=== PATIENT | female | born 1940 | race Two or more races ===

== ENCOUNTER 2023-12-31 23:29 | Inpatient (IN) | payer MEDICARE, MEDICAID ==
[~2023-12-31] VITALS: Ht 129.5 cm; Wt 59.2 kg
[2024-01-01] VITALS (16 sets, daily range): BP systolic 112–154; BP diastolic 54–78; PULSE 74–110; RESP 12–23; TEMP 97.4–98.4; O2SAT 91–100
[2024-01-01] MEDS ORDERED: magnesium sulf-water 2g/50mL 50 ML IV PRN (00:55)
[2024-01-01] MEDS ORDERED: magnesium sulf-water 4G/100mL 100 ML IV PRN (00:55)
[2024-01-01] MEDS ORDERED: magnesium Cl slow-release 64mg tablet PO PRN (00:55)
[2024-01-01] MEDS: PERFLUTREN PROTEIN-A MICROSPHR (Optison) 0.22 MG/ML 3ML VIAL IV ONE (00:55)
[2024-01-01] MEDS ORDERED: magnesium hydroxide 30ml (MOM) UD suspension PO PRN (00:55)
[2024-01-01] MEDS ORDERED: potassium Cl 40MEQ/1/2NS 520ml 520 ML IV PRN (00:55)
[2024-01-01] MEDS ORDERED: mag hydrox/Alum hydrox/simeth 30ml oral suspension PO PRN (00:55)
[2024-01-01] MEDS: normal saline 1000ml 1,000 ML IV SCH (01:57)
[2024-01-01] MEDS ORDERED: normal saline 500ml IV soln 500 ML IV ONE ×2 (02:10)
[2024-01-01] MEDS: normal saline 1000ml 1,000 ML IVB ONE (02:56)
[2024-01-01] MEDS: azithromycin/NS 500mg/250ml 250 ML IV SCH (03:00)
[2024-01-01 03:10] LABS: BASOPHILS % (AUTO) 0.1 % (0-1); EOSINOPHILS % (AUTO) 0.1 % (0-6); HEMATOCRIT 32.5 % (35.0-45.0); HEMOGLOBIN 10.4 g/dl (12.0-16.0); LYMPHOCYTES # (AUTO) 1.5 X10'3 (1.1-4.8); MEAN CORPUSCULAR HEMOGLOBIN 27.8 PG (27.0-31.0); MEAN CORPUSCULAR HGB CONC 31.9 g/dL (33.0-36.5); MEAN CORPUSCULAR VOLUME 87.3 FL (78-98); MEAN PLATELET VOLUME 7.5 FL (7.4-10.4); MONOCYTES # (AUTO) 2.7 X10'3 (0-0.9); MONOCYTES % (AUTO) 17.6 % (2-12); NEUTROPHILS # (AUTO) 11.1 X10'3 (1.8-7.7); NEUTROPHILS % (AUTO) 72.2 % (42-75); PLATELET COUNT 167 X10'3 (140-440); RED BLOOD COUNT 3.73 X10'6 (4.20-5.60); RED CELL DISTRIBUTION WIDTH 15.7 % (11.5-14.5); WHITE BLOOD COUNT 15.4 X10'3 (4.5-11.0)
[2024-01-01 03:20] LABS: ALANINE AMINOTRANSFERASE 25 U/L (12-78); ALBUMIN 2.5 G/DL (3.4-5.0); ALBUMIN/GLOBULIN RATIO 0.6 (1.1-1.5); ALKALINE PHOSPHATASE 73 IU/L (46-116); ANION GAP 12 (8-16); ASPARTATE AMINO TRANSFERASE 28 U/L (10-37); BILIRUBIN,TOTAL 0.5 MG/DL (0.1-1.0); BLOOD UREA NITROGEN 17 MG/DL (7-18); CALCIUM 8.2 MG/DL (8.5-10.1); CHLORIDE 107 MMOL/L (99-107); CREATININE 1.13 MG/DL (0.40-0.90); GLUCOSE 110 MG/DL (70-104); POTASSIUM 3.9 MMOL/L (3.5-5.1); SODIUM 140 MMOL/L (135-145); TOTAL CARBON DIOXIDE 21.5 MMOL/L (24-32); TOTAL PROTEIN 6.6 G/DL (6.4-8.2); eCRCL 15 ML/MIN; eGFR 46 ML/MIN
[2024-01-01 03:21] LABS: CHOL/HDL RATIO 1.9 (0.00-4.99); CHOLESTEROL 111 MG/DL (0-200); HDL CHOLESTEROL 59 MG/DL (35-60); LDL CHOLESTEROL 43 MG/DL (50-100); MAGNESIUM 1.7 MG/DL (1.5-2.4); TRIGLYCERIDES 78 MG/DL (20-135)
[2024-01-01 04:04] LABS: PLATELET ESTIMATE NORMAL; TOTAL CELLS COUNTED 100
[2024-01-01] MEDS: ipratropium/albuterol 3ml nebule NEB PRN (05:39)
[2024-01-01 06:53] LABS: C DIFF ANTIGEN NEGATIVE (NEGATIVE); C DIFF SPECIMEN=DIARRHEA? ACCEPTABLE; C DIFFICILE TOXINS A&B NEGATIVE (Neg)
[2024-01-01] MEDS: K and/or MAG REPLACEMENT MC SCH (08:00)
[2024-01-01] MEDS: docusate sod 100mg capsule PO SCH (08:00)
[2024-01-01 08:03] LABS: PRO BRAIN NATRIURETIC PEPTIDE 1859 PG/ML (0-450)
[2024-01-01] MEDS: nitroGLYCERIN 0.4mg SUBLingual tab SL PRN (08:22)
[2024-01-01] MEDS: morphine 2 MG/ML inj. syringe IV PRN (08:29)
[2024-01-01] MEDS: ipratropium/albuterol 3ml nebule NEB SCH (08:30)
[2024-01-01] MEDS: CefTRIAXone 2gm/D5W 50ml BAG 50 ML IV SCH (08:36)
[2024-01-01] MEDS: pantoprazole 40 MG vial IV SCH (08:41)
[2024-01-01 14:37] LABS: BASOPHILS % (AUTO) 0.1 % (0-1); EOSINOPHILS % (AUTO) 0.1 % (0-6); HEMATOCRIT 30.4 % (35.0-45.0); HEMOGLOBIN 10.2 g/dl (12.0-16.0); LYMPHOCYTES # (AUTO) 0.9 X10'3 (1.1-4.8); LYMPHOCYTES % (AUTO) 8.7 % (21-51); MEAN CORPUSCULAR HEMOGLOBIN 28.5 PG (27.0-31.0); MEAN CORPUSCULAR HGB CONC 33.6 g/dL (33.0-36.5); MEAN CORPUSCULAR VOLUME 84.9 FL (78-98); MEAN PLATELET VOLUME 7.7 FL (7.4-10.4); MONOCYTES # (AUTO) 1.3 X10'3 (0-0.9); MONOCYTES % (AUTO) 12.7 % (2-12); NEUTROPHILS % (AUTO) 78.4 % (42-75); PLATELET COUNT 172 X10'3 (140-440); RED BLOOD COUNT 3.57 X10'6 (4.20-5.60); RED CELL DISTRIBUTION WIDTH 15.2 % (11.5-14.5); WHITE BLOOD COUNT 10.2 X10'3 (4.5-11.0)
[2024-01-01 14:44] LABS: ALANINE AMINOTRANSFERASE 30 U/L (12-78); ALBUMIN 2.4 G/DL (3.4-5.0); ALBUMIN/GLOBULIN RATIO 0.6 (1.1-1.5); ALKALINE PHOSPHATASE 66 IU/L (46-116); ANION GAP 10 (8-16); ASPARTATE AMINO TRANSFERASE 33 U/L (10-37); BILIRUBIN,TOTAL 0.3 MG/DL (0.1-1.0); BLOOD UREA NITROGEN 15 MG/DL (7-18); BUN/CREATININE RATIO 15.6 (10.0-20.0); CALCIUM 8.2 MG/DL (8.5-10.1); CHLORIDE 111 MMOL/L (99-107); CREATININE 0.96 MG/DL (0.40-0.90); GLUCOSE 103 MG/DL (70-104); POTASSIUM 3.9 MMOL/L (3.5-5.1); SODIUM 145 MMOL/L (135-145); TOTAL CARBON DIOXIDE 23.7 MMOL/L (24-32); TOTAL PROTEIN 6.2 G/DL (6.4-8.2); eCRCL 17 ML/MIN; eGFR 56 ML/MIN
[2024-01-01] MEDS ORDERED: CHOL20004 PO (15:52)
[2024-01-01] MEDS ORDERED: ATOR40TA PO (15:52)
[2024-01-01] MEDS ORDERED: ASPI-1265 PO (15:52)
[2024-01-01] MEDS ORDERED: NITR0.4T51 (15:52)
[2024-01-01] MEDS ORDERED: LISI2.5T14 PO (15:52)
[2024-01-01] MEDS ORDERED: RISP-31 PO (15:52)
[2024-01-01] MEDS ORDERED: BISA10SU60 RC (15:52)
[2024-01-01] MEDS ORDERED: METO25TA6 PO (15:52)
[2024-01-01] MEDS ORDERED: LORA10TA7 PO (15:52)
[2024-01-01] MEDS ORDERED: FURO40TA4 PO (15:52)
[2024-01-01] MEDS ORDERED: MELA10TA20 PO (15:52)
[2024-01-01] MEDS ORDERED: GABA-535 PO (15:52)
[2024-01-01] MEDS ORDERED: TIZA-189 PO (15:52)
[2024-01-01] MEDS ORDERED: POLY119P2 PO (15:52)
[2024-01-01] MEDS ORDERED: POTA-208 PO (15:52)
[2024-01-01] MEDS ORDERED: NYST15PO4 (15:52)
[2024-01-01] MEDS: lisinopril 2.5mg tablet PO SCH (16:50)
[2024-01-01] MEDS: aspirin 81mg tab.chew PO SCH (19:00)
[2024-01-01] MEDS: risperiDONE 0.5mg tablet PO SCH (21:18)
[2024-01-01] MEDS: atorvastatin 20mg tablet PO SCH (21:19)
[2024-01-01] MEDS: metoprolol tartrate 12.5mg (1/2 tablet) PO SCH (21:20)
[2024-01-01] MEDS: Melatonin 3mg tablet PO SCH (21:21)
[2024-01-01] MEDS: tizanidine 4mg tablet PO SCH (21:22)
[2024-01-01] MEDS: enoxaparin 30mg/0.3ml syringe SQ SCH (21:28)
[2024-01-02] VITALS (20 sets, daily range): BP systolic 92–150; BP diastolic 46–77; PULSE 79–101; RESP 12–26; TEMP 97.6–99.8; O2SAT 90–99
[2024-01-02] MEDS ORDERED: loratadine 10mg tablet PO SCH (08:00)
[2024-01-02] MEDS ORDERED: non-formulary drug (Polyethylene Glycol 3350 (Miralax) 17 GM) PO SCH (08:00)
[2024-01-02 09:47] LABS: HEMOGLOBIN 10.8 g/dl (12.0-16.0); RED CELL DISTRIBUTION WIDTH 15.2 % (11.5-14.5)
[2024-01-02 10:05] LABS: BASOPHILS % (AUTO) 0.2 % (0-1); EOSINOPHILS % (AUTO) 0.3 % (0-6); HEMATOCRIT 33.2 % (35.0-45.0); LYMPHOCYTES # (AUTO) 0.7 X10'3 (1.1-4.8); LYMPHOCYTES % (AUTO) 7.2 % (21-51); MEAN CORPUSCULAR HGB CONC 32.6 g/dL (33.0-36.5); MEAN CORPUSCULAR VOLUME 85.7 FL (78-98); MEAN PLATELET VOLUME 8.5 FL (7.4-10.4); MONOCYTES # (AUTO) 1.5 X10'3 (0-0.9); MONOCYTES % (AUTO) 15.2 % (2-12); NEUTROPHILS # (AUTO) 7.8 X10'3 (1.8-7.7); NEUTROPHILS % (AUTO) 77.1 % (42-75); PLATELET COUNT 196 X10'3 (140-440); RED BLOOD COUNT 3.87 X10'6 (4.20-5.60); WHITE BLOOD COUNT 10.1 X10'3 (4.5-11.0)
[2024-01-02] MEDS: cholecalciferol (vitamin D3) 1,000 unit (25mcg) tablet PO SCH (10:52)
[2024-01-02] MEDS: furosemide 40mg tablet PO SCH (10:55)
[2024-01-02 11:08] LABS: ALANINE AMINOTRANSFERASE 39 U/L (12-78); ALBUMIN 2.5 G/DL (3.4-5.0); ALBUMIN/GLOBULIN RATIO 0.6 (1.1-1.5); ALKALINE PHOSPHATASE 72 IU/L (46-116); ANION GAP 10 (8-16); ASPARTATE AMINO TRANSFERASE 40 U/L (10-37); BILIRUBIN,TOTAL 0.4 MG/DL (0.1-1.0); BLOOD UREA NITROGEN 15 MG/DL (7-18); BUN/CREATININE RATIO 17.6 (10.0-20.0); CALCIUM 8.7 MG/DL (8.5-10.1); CHLORIDE 111 MMOL/L (99-107); CREATININE 0.85 MG/DL (0.40-0.90); GLUCOSE 88 MG/DL (70-104); SODIUM 144 MMOL/L (135-145); TOTAL CARBON DIOXIDE 23.1 MMOL/L (24-32); TOTAL PROTEIN 6.4 G/DL (6.4-8.2); eCRCL 20 ML/MIN; eGFR 64 ML/MIN
[2024-01-02 11:15] LABS: POTASSIUM 3.9 MMOL/L (3.5-5.1)
[2024-01-02] MEDS: acetaminophen 325mg tablet PO PRN (18:09)
[2024-01-02] MEDS: methylPREDNISolone sod succ/PF 40mg inj. IV SCH (19:27)
[2024-01-03] VITALS (17 sets, daily range): BP systolic 130–163; BP diastolic 56–79; PULSE 78–116; RESP 14–26; TEMP 97–100.5; O2SAT 92–98
[2024-01-03] MEDS: pantoprazole 40mg Tablet.DR PO SCH (07:30)
[2024-01-03] MEDS: ondansetron/PF 4mg/2ml inj IV PRN (09:13)
[2024-01-03 10:11] LABS: ALANINE AMINOTRANSFERASE 34 U/L (12-78); ALBUMIN 2.7 G/DL (3.4-5.0); ALBUMIN/GLOBULIN RATIO 0.7 (1.1-1.5); ALKALINE PHOSPHATASE 73 IU/L (46-116); ANION GAP 13 (8-16); ASPARTATE AMINO TRANSFERASE 31 U/L (10-37); BILIRUBIN,TOTAL 0.4 MG/DL (0.1-1.0); BLOOD UREA NITROGEN 23 MG/DL (7-18); CHLORIDE 110 MMOL/L (99-107); CREATININE 0.92 MG/DL (0.40-0.90); GLUCOSE 140 MG/DL (70-104); MAGNESIUM 2.2 MG/DL (1.5-2.4); POTASSIUM 3.4 MMOL/L (3.5-5.1); SODIUM 145 MMOL/L (135-145); TOTAL CARBON DIOXIDE 22.4 MMOL/L (24-32); TOTAL PROTEIN 6.8 G/DL (6.4-8.2); eCRCL 18 ML/MIN; eGFR 58 ML/MIN
[2024-01-03 10:15] LABS: BASOPHILS % (AUTO) 0.1 % (0-1); EOSINOPHILS % (AUTO) 0 % (0-6); HEMATOCRIT 30.6 % (35.0-45.0); HEMOGLOBIN 10.2 g/dl (12.0-16.0); LYMPHOCYTES # (AUTO) 0.6 X10'3 (1.1-4.8); LYMPHOCYTES % (AUTO) 12.6 % (21-51); MEAN CORPUSCULAR HEMOGLOBIN 28.1 PG (27.0-31.0); MEAN CORPUSCULAR HGB CONC 33.2 g/dL (33.0-36.5); MEAN CORPUSCULAR VOLUME 84.8 FL (78-98); MEAN PLATELET VOLUME 7.9 FL (7.4-10.4); MONOCYTES # (AUTO) 0.2 X10'3 (0-0.9); NEUTROPHILS # (AUTO) 3.8 X10'3 (1.8-7.7); NEUTROPHILS % (AUTO) 83.3 % (42-75); PLATELET COUNT 209 X10'3 (140-440); RED BLOOD COUNT 3.61 X10'6 (4.20-5.60); RED CELL DISTRIBUTION WIDTH 15.3 % (11.5-14.5); WHITE BLOOD COUNT 4.6 X10'3 (4.5-11.0)
[2024-01-03] MEDS: azithromycin 250mg tablet PO SCH (10:56)
[2024-01-03] MEDS: potassium Cl 20 mEq SR tablet PO PRN ×2 (11:20→20:57)
[2024-01-03] MEDS: HYDROmorphone/PF 0.2 MG/ML SYRINGE IV ONE (19:30)
[2024-01-04] VITALS (14 sets, daily range): BP systolic 133–172; BP diastolic 51–82; PULSE 71–97; RESP 18–24; TEMP 97.3–98.8; O2SAT 93–95
[2024-01-04 03:02] LABS: BASOPHILS % (AUTO) 0.1 % (0-1); EOSINOPHILS % (AUTO) 0 % (0-6); HEMATOCRIT 28.5 % (35.0-45.0); HEMOGLOBIN 9.4 g/dl (12.0-16.0); LYMPHOCYTES # (AUTO) 0.7 X10'3 (1.1-4.8); MEAN CORPUSCULAR HEMOGLOBIN 28.2 PG (27.0-31.0); MEAN CORPUSCULAR HGB CONC 33.1 g/dL (33.0-36.5); MEAN PLATELET VOLUME 7.5 FL (7.4-10.4); MONOCYTES # (AUTO) 1.4 X10'3 (0-0.9); MONOCYTES % (AUTO) 21.2 % (2-12); NEUTROPHILS # (AUTO) 4.6 X10'3 (1.8-7.7); NEUTROPHILS % (AUTO) 68.7 % (42-75); PLATELET COUNT 218 X10'3 (140-440); RED BLOOD COUNT 3.35 X10'6 (4.20-5.60); RED CELL DISTRIBUTION WIDTH 14.9 % (11.5-14.5); WHITE BLOOD COUNT 6.7 X10'3 (4.5-11.0)
[2024-01-04 03:19] LABS: ALANINE AMINOTRANSFERASE 37 U/L (12-78); ALBUMIN 2.6 G/DL (3.4-5.0); ALBUMIN/GLOBULIN RATIO 0.7 (1.1-1.5); ALKALINE PHOSPHATASE 64 IU/L (46-116); ANION GAP 11 (8-16); ASPARTATE AMINO TRANSFERASE 26 U/L (10-37); BILIRUBIN,TOTAL 0.3 MG/DL (0.1-1.0); BLOOD UREA NITROGEN 30 MG/DL (7-18); BUN/CREATININE RATIO 27.8 (10.0-20.0); CALCIUM 8.6 MG/DL (8.5-10.1); CHLORIDE 112 MMOL/L (99-107); CREATININE 1.08 MG/DL (0.40-0.90); GLUCOSE 140 MG/DL (70-104); MAGNESIUM 2.2 MG/DL (1.5-2.4); POTASSIUM 3.5 MMOL/L (3.5-5.1); SODIUM 147 MMOL/L (135-145); TOTAL CARBON DIOXIDE 23.9 MMOL/L (24-32); TOTAL PROTEIN 6.5 G/DL (6.4-8.2); eCRCL 15 ML/MIN; eGFR 48 ML/MIN
[2024-01-04 04:00] LABS: TOTAL CELLS COUNTED 100
[2024-01-04 04:01] LABS: PLATELET ESTIMATE NORMAL
[2024-01-04 08:17] LABS: BASOPHILS % (AUTO) 0 % (0-1); EOSINOPHILS % (AUTO) 0 % (0-6); HEMATOCRIT 28.7 % (35.0-45.0); HEMOGLOBIN 9.6 g/dl (12.0-16.0); LYMPHOCYTES # (AUTO) 0.9 X10'3 (1.1-4.8); LYMPHOCYTES % (AUTO) 9.8 % (21-51); MEAN CORPUSCULAR HEMOGLOBIN 28.8 PG (27.0-31.0); MEAN CORPUSCULAR HGB CONC 33.3 g/dL (33.0-36.5); MEAN CORPUSCULAR VOLUME 86.3 FL (78-98); MEAN PLATELET VOLUME 7.8 FL (7.4-10.4); MONOCYTES % (AUTO) 21.4 % (2-12); NEUTROPHILS # (AUTO) 6.4 X10'3 (1.8-7.7); NEUTROPHILS % (AUTO) 68.8 % (42-75); PLATELET COUNT 228 X10'3 (140-440); RED BLOOD COUNT 3.32 X10'6 (4.20-5.60); RED CELL DISTRIBUTION WIDTH 15.5 % (11.5-14.5); WHITE BLOOD COUNT 9.4 X10'3 (4.5-11.0)
[2024-01-04] MEDS: normal saline 1000ml 1,000 ML IV SCH (16:47)
[2024-01-04] MEDS: methylPREDNISolone sod succ/PF 40mg inj. IV SCH (19:44)
[2024-01-04] MEDS: HYDROmorphone inj. 0.5 MG/0.5 ML DISP.SYRIN IV PRN (22:34)
[2024-01-05] VITALS (20 sets, daily range): BP systolic 132–170; BP diastolic 57–78; PULSE 58–106; RESP 16–22; TEMP 97.2–99.2; O2SAT 92–98
[2024-01-05] MEDS: furosemide 40mg/4ml inj IV ONE (01:15)
[2024-01-05] MEDS ORDERED: albuterol 2.5 MG/3 ML nebule NEB PRN (01:45)
[2024-01-05 06:53] LABS: BASOPHILS % (AUTO) 0 % (0-1); EOSINOPHILS % (AUTO) 0 % (0-6); HEMATOCRIT 30.5 % (35.0-45.0); HEMOGLOBIN 10.1 g/dl (12.0-16.0); LYMPHOCYTES # (AUTO) 0.7 X10'3 (1.1-4.8); MEAN CORPUSCULAR VOLUME 84.8 FL (78-98); MEAN PLATELET VOLUME 8.1 FL (7.4-10.4); MONOCYTES # (AUTO) 0.9 X10'3 (0-0.9); MONOCYTES % (AUTO) 15.8 % (2-12); NEUTROPHILS # (AUTO) 4.4 X10'3 (1.8-7.7); NEUTROPHILS % (AUTO) 73.2 % (42-75); PLATELET COUNT 255 X10'3 (140-440); RED CELL DISTRIBUTION WIDTH 15.3 % (11.5-14.5)
[2024-01-05 07:23] LABS: ALANINE AMINOTRANSFERASE 44 U/L (12-78); ALBUMIN 3.1 G/DL (3.4-5.0); ALBUMIN/GLOBULIN RATIO 0.8 (1.1-1.5); ALKALINE PHOSPHATASE 64 IU/L (46-116); ANION GAP 11 (8-16); ASPARTATE AMINO TRANSFERASE 28 U/L (10-37); BILIRUBIN,TOTAL 0.6 MG/DL (0.1-1.0); BLOOD UREA NITROGEN 31 MG/DL (7-18); BUN/CREATININE RATIO 29.5 (10.0-20.0); CHLORIDE 108 MMOL/L (99-107); CREATININE 1.05 MG/DL (0.40-0.90); GLUCOSE 153 MG/DL (70-104); MAGNESIUM 2.1 MG/DL (1.5-2.4); POTASSIUM 3.1 MMOL/L (3.5-5.1); SODIUM 147 MMOL/L (135-145); TOTAL CARBON DIOXIDE 28.2 MMOL/L (24-32); eCRCL 16 ML/MIN; eGFR 50 ML/MIN
[2024-01-05 07:28] LABS: PLATELET ESTIMATE NORMAL; TOTAL CELLS COUNTED 100
[2024-01-05 07:29] LABS: ANISOCYTOSIS FEW; POIKILOCYTOSIS FEW
[2024-01-05] MEDS ORDERED: furosemide 20MG tablet PO SCH (08:00)
[2024-01-05] MEDS ORDERED: magnesium sulf-water 2g/50mL 50 ML IV PRN (09:00)
[2024-01-05] MEDS ORDERED: potassium Cl 40MEQ/1/2NS 520ml 520 ML IV PRN (09:00)
[2024-01-05] MEDS ORDERED: magnesium Cl slow-release 64mg tablet PO PRN (09:00)
[2024-01-05] MEDS ORDERED: magnesium sulf-water 4G/100mL 100 ML IV PRN (09:00)
[2024-01-05] MEDS ORDERED: potassium Cl 20 mEq SR tablet PO PRN (09:00)
[2024-01-05] MEDS: potassium Cl 20 mEq SR tablet PO PRN (10:51)
[2024-01-05] MEDS: furosemide 40mg/4ml inj IV SCH (10:59)
[2024-01-05] MEDS: lactose-reduced food (Ensure Enlive) - 237ml bottle PO SCH (18:08)
[2024-01-05] MEDS: methylPREDNISolone sod succ/PF 40mg inj. IV SCH (19:36)
[2024-01-05] MEDS: K and/or MAG REPLACEMENT MC SCH (19:38)
[2024-01-06] VITALS (8 sets, daily range): BP systolic 153–166; BP diastolic 63–74; PULSE 64–88; RESP 16–22; TEMP 98.2–99.2; O2SAT 94–97
[2024-01-06 08:43] LABS: BASOPHILS % (AUTO) 0.2 % (0-1); EOSINOPHILS % (AUTO) 0.6 % (0-6); HEMATOCRIT 29.4 % (35.0-45.0); HEMOGLOBIN 9.8 g/dl (12.0-16.0); LYMPHOCYTES # (AUTO) 0.8 X10'3 (1.1-4.8); LYMPHOCYTES % (AUTO) 14.4 % (21-51); MEAN CORPUSCULAR HEMOGLOBIN 28.4 PG (27.0-31.0); MEAN CORPUSCULAR HGB CONC 33.3 g/dL (33.0-36.5); MEAN CORPUSCULAR VOLUME 85.2 FL (78-98); MEAN PLATELET VOLUME 8.6 FL (7.4-10.4); MONOCYTES # (AUTO) 1.5 X10'3 (0-0.9); MONOCYTES % (AUTO) 27.1 % (2-12); NEUTROPHILS # (AUTO) 3.2 X10'3 (1.8-7.7); NEUTROPHILS % (AUTO) 57.7 % (42-75); PLATELET COUNT 223 X10'3 (140-440); RED BLOOD COUNT 3.46 X10'6 (4.20-5.60); RED CELL DISTRIBUTION WIDTH 15.1 % (11.5-14.5); WHITE BLOOD COUNT 5.6 X10'3 (4.5-11.0)
== END 2024-01-06 09:35 | DRG 177 ==
LOC: ER 23:31 → ED HOLD 01-01 01:03 → PCU 3S 01-01 07:50
PROVIDERS: ADMIT Surgery Surgical Critical Care; ATTEND Internal Medicine
DX: J15.69 Pneumonia due to other Gram-negative bacteria (principal); I21.A1 Myocardial infarction type 2; J96.01 Acute respiratory failure with hypoxia; R65.11 Systemic inflammatory response syndrome (SIRS) of non-infectious origin with acute organ dysfunction; I50.32 Chronic diastolic (congestive) heart failure; F03.90 Unspecified dementia, unspecified severity, without behavioral disturbance, psychotic disturbance, mood disturbance, and anxiety; Z66 Do not resuscitate; I11.0 Hypertensive heart disease with heart failure; I25.10 Atherosclerotic heart disease of native coronary artery without angina pectoris; F31.9 Bipolar disorder, unspecified; E87.6 Hypokalemia; Z51.5 Encounter for palliative care
CPT/HCPCS: 36415; 71045; 80053; 80061; 83735; 83880; 84132; 84145; 84484; 85007; 85025; 85651; 87081; 87324; 87449; 92508; 92616; 93005; 93306; 93971; 94640; 94760; 97110; 97116; 97161; 97530; 99285; A4615; A6258; G0378; J0456; J0696; J1170; J1650; J1940; J2270; J2405; J2470; J2919; J7030